=== PATIENT | male | born 1990 | race Caucasian/White ===

== ENCOUNTER 2017-01-07 08:52 | Inpatient (IN) | payer OTHER, MEDICAID ==
--- NOTE | ~2017-01-07 | DS ---
Unit #: [id number] #: [id number] Patient: ADARSH DUARTE [id number] [facility] [address] [place] [address] [id number] MR#: [id number] NAME: ADARSH DUARTE ROOM: P202 Age: 26 Sex: M Admission Date: 01/07/2017 : 1990 Discharge Date: 01/10/2017 Attending Physician: Andi Harper M.D. DISCHARGE SUMMARY REASON FOR ADMISSION Adarsh is a 26-year-old man who went [facility] reporting suicidal ideation and ongoing substance abuse. His MIW was upheld but he signed in voluntarily upon arrival to [facility]. DIAGNOSTIC STUDIES LABORATORY DATA: Please see hospital chart. HOSPITAL COURSE Patient was admitted and placed on suicide precautions and protocol. Celexa 20 mg daily was initiated for severe depression with trazodone as needed for insomnia. The patient was quite irritable, becoming agitated with staff at one point because "they did not wake me for breakfast" and taking responsibility for his actions. Review of his psychiatric symptoms revealed little evidence for bipolar disorder, especially in the absence of substance abuse, and he will be treated as major depressive disorder. He rapidly improved with detox and contracted for safety on the second day of hospitalization. The following day he continued to contract for safety and was willing to engage in outpatient treatment. DISCHARGE DIAGNOSIS AXIS I: Major depressive disorder. Opiate dependence. Cannabis abuse. Cocaine abuse. AXIS II: Antisocial traits. AXIS III: None acute. INSTRUCTIONS TO THE PATIENT Follow up with [facility], AA and NA meetings. DISCHARGE MEDICATIONS Celexa 20 mg daily for depression. Trazodone 50 mg at bedtime as needed for insomnia. CONDITION ON DISCHARGE Improved. PROGNOSIS Fair if patient maintains sobriety in followup. DIET AND ACTIVITY Unit #: [id number] #: [id number] Patient: ADARSH DUARTE Ad yodry Dictated by... Nel Brandon/con TD: 02/20/2017 04:44 JOB #: [id number] DISCHARGE SUMMARY Page 1 of 1 X Andi Harper MD X DISCHARGE SUMMARY
--- NOTE | ~2017-01-07 | HP ---
Unit #: [id number] #: [id number] Patient: ADARSH DUARTE [id number] [place] [address] [id number] MR#: [id number] NAME: ADARSH DUARTE ROOM: P202 Age: 26 Sex: M Admission Date: 01/07/2017 : 1990 Attending Physician: Andi Harper M.D. Admitting Physician: Andi Harper M.D. HISTORY AND PHYSICAL HISTORY OF PRESENT ILLNESS Adarsh is a 26 year old admitted to [address] [place] [address] because of his elicit substance abuse. He is abusing Suboxone. PAST MEDICAL HISTORY Long history of opioid abuse. PAST SURGICAL HISTORY Nothing reported. ALLERGIES No known drug allergies. SOCIAL HISTORY Smokes 1 pack per day. Drinks alcohol rarely. Admits to a history of opioid abuse. He is currently abusing Suboxone. FAMILY HISTORY Medically noncontributory. REVIEW OF SYSTEMS CONSTITUTIONAL: No fever or chills. HEENT: Denies any sore throat, ear pain or runny nose. CARDIOVASCULAR: Denies chest pain, irregular heart rhythm or palpitations. CHEST: Denies shortness of breath or cough. No hemoptysis. GASTROINTESTINAL: Denies nausea, vomiting, diarrhea or chronic constipation. ENDOCRINE: Denies history of increased thirst or urination. No recent significant weight loss or gain. GENITOURINARY: Denies dysuria, frequency, or hematuria. SKIN: Denies any rashes. HEMATOLOGIC: Denies history of increased bleeding or bruising. MUSCULOSKELETAL: Denies any hot, swollen joints. No generalized muscle pain. NEUROLOGIC: Denies problems with vision or speech. No frequent, severe headaches. No numbness, tingling or weakness in any extremities. Denies loss of bladder or bowel control. CURRENT MEDICATIONS Detox protocol. PHYSICAL EXAMINATION GENERAL: Alert, well-nourished, no apparent distress. Unit #: [id number] #: [id number] Patient: ADARSH DUARTE VITAL SIGNS: Blood pressure 140/82, heart rate 90, respirations 16, temperature 98.6. WEIGHT: 168. HEIGHT: 6 feet 2 inches. SKIN: Warm and dry without rash or lesion. HEENT: Normocephalic. TMs not viewed. Oral and nasal passages clear. Conjunctivae clear. PERRLA. EOMs intact. NECK: Supple without lymphadenopathy or thyromegaly. HEART: Regular rate and rhythm without murmur. LUNGS: Clear. ABDOMEN: Soft, nontender. : Not done. EXTREMITIES: No evidence of cyanosis, clubbing or edema. Moves all without focal deficit. NEUROLOGICAL: Grossly within normal limits. Cranial Nerves: II: Visual garzon are intact. III, IV AND : Extraocular movements are intact. Pupils are equal, round and reactive to light. V: Facial sensation is grossly normal. VII: Facial movements and expression are normal. VIII: Auditory acuity grossly intact. IX, X: Uvula is midline. Phonation is normal. XI: Patient shrugs shoulders and turns head normally. XII: Tongue protrudes in the midline. Sensory and Motor Function: Sensory and motor sensation is grossly normal. Motor: moves all extremities well. Coordination: Gait is normal. Deep Tendon Reflexes: Intact. IMPRESSION Psychiatric admission. RECOMMENDATIONS PSYCHIATRIC: Per psychiatrist. MEDICAL: See no contraindications to participate in facility's activities. MEDICAL PROGNOSIS Good. MEDICAL CONDITION Stable. Dictated by... Charley AugustinANataly. for Nel Gonzalez/kenneth TD: 01/07/2017 21:07 JOB #: [id number] Unit #: [id number] #: [id number] Patient: ADARSH DUARTE HISTORY AND PHYSICAL Page 1 of 1 X Britney Goldman HISTORY AND PHYSICAL
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
== END 2017-01-10 11:46 | DRG 885 ==
LOC: P2S 08:52
PROC: HZ2ZZZZ Detoxification Services for Substance Abuse Treatment (ICD-10-PCS; principal; 2017-01-07)
DX: F33.2 Major depressive disorder, recurrent severe without psychotic features (principal); R45.851 Suicidal ideations; F11.23 Opioid dependence with withdrawal; F19.239 Other psychoactive substance dependence with withdrawal, unspecified; F17.210 Nicotine dependence, cigarettes, uncomplicated; F12.10 Cannabis abuse, uncomplicated; F14.10 Cocaine abuse, uncomplicated; F60.2 Antisocial personality disorder
CPT/HCPCS: 86592